=== PATIENT | male | born 1995 | race Caucasian/White ===

== ENCOUNTER 2018-07-19 00:45 | Emergency (ER) | payer MEDICAID ==
[~2018-07-19] VITALS: Wt 57.8 kg
[2018-07-19 00:47] VITALS: BP 135/79; PULSE 107; RESP 18
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
[2018-07-19] MEDS ORDERED: ACETAMINOPHEN 325 MG TAB PO ONE (02:00)
[2018-07-19] MEDS ORDERED: LIDOCAINE 1%/EPI (MDV) 50 ML INJ INJ ONE (02:00)
[2018-07-19] MEDS ORDERED: LIDOCAINE 1%/EPI (1:100,000) (MDV) 20 ML INJ ONE (02:30)
[2018-07-19] MEDS ORDERED: CEPH-443 PO (02:58)
[2018-07-19] MEDS ORDERED: IBUP-1561 PO (02:58)
[2018-07-19] MEDS ORDERED: ACET325T33 PO (02:58)
== END 2018-07-19 04:20 | disposition home or self-care (01) ==
LOC: FTE 00:45
DX: S01.511A Laceration without foreign body of lip, initial encounter (principal); S01.112A Laceration without foreign body of left eyelid and periocular area, initial encounter; S06.0X0A Concussion without loss of consciousness, initial encounter; Y08.89XA Assault by other specified means, initial encounter
CPT/HCPCS: 12013; 70450; 72072; Z7502; Z7610